=== PATIENT | female | born 1995 | race Caucasian/White ===

== ENCOUNTER 2025-05-30 12:25 | Emergency (ER) | payer MEDICAID, OTHER ==
[~2025-05-30] VITALS: Ht 162.6 cm; Wt 82.0 kg
[~2025-05-30 12:25] MED LIST: ONDA-243 PO
[2025-05-30 13:08] VITALS: BP 113/64; PULSE 80; RESP 18; O2SAT 97
--- NOTE | 2025-05-30 14:59 | Physician Documentation ---
History of Present Illness ~ Chief Complaint: Rash Stated Complaint: RASH/BUG BITES Time Seen by MD: 14:15 HPI Patient is a 30-year-old female that presents to the emergency department for evaluation of several patches of rash on her arm leg face and small area on her abdomen. She has recently moved to a new apartment with her aunt her aunt has 10+ cats they have fleas she is concerned that these might be flea bites. She reports a history of eczema denies any recent outings our exposure to poison oak and no other known sources as irritant at this time. Denies any difficulty breathing ocular involvement and no itching or lesions noted in her mouth or oral mucosa. Medication Reconciliation Allergies: Coded Allergies: No Known Allergies (Unverified , 05/30/25) Scheduled PRN ONDANSETRON ODT 4mg tablet (Ondansetron Odt), 1 TABLET PO Q6H PRN for nausea/vomiting Past Medical History Past Medical History: No Pertinent History Past Surgical History: no surgical history Alcohol Use: None Drug Use: none Lives with: Family Lives In: Home Review of Systems ROS As stated above in the HPI, otherwise all systems are reviewed and negative. Physical Exam Vital Signs: Temperature: 97.3, Source: Temporal, Heart Rate: 80, Respiratory Rate: 18, BP: 113/64, Pulse Oximetry: 97, Weight: 81.950 Physical Exam VITALS: Reviewed and as above. GENERAL: Alert, no apparent distress. HEENT: Normocephalic, atraumatic, PERRL, EOMI, dry mucosa, no erythema RESPIRATORY: Lungs clear, normal breath sounds, no respiratory distress. CHEST: No accessory muscle use, no retractions CV: Regular rate, rhythm, no edema, no murmur, No: JVD GI: Soft, non-tender, bowels sounds present, no rebound, guarding, or rigidity BACK: No CVA tenderness, or swelling MUSCULOSKELETAL No deformities, no edema SKIN: Warm and dry, multiple areas of erythematous mildly vesicular rash to elbow posterior left knee left cheek small area on abdomen NEURO: Oriented x4, No motor or sensory deficit PSYCH: Normal mood and affect, no agitation Progress Results/Orders Results/Orders Completed Orders - CLINTON HOLGUINP Methylprednisolone Sod Succ (Solumedrol (05/30/25 14:35) Medications Received in ER Medications (Trade) Dose Ordered Sig/Kale Route PRN Reason Start Time Stop Time Status Last Admin Dose Admin (SoluMEDROL 125mg inj) 125 mg ONCE ONCE IM 05/30/25 14:35 05/30/25 14:36 DC 05/30/25 14:40 125 MG Vital Signs 05/30/25 13:08 Temp 97.3 Pulse 80 Resp 18 B/P (MAP) 113/64 Pulse Ox 97 Medical Decision Making Findings This patient who presents with rash consistent with contact dermatitis or exacerbation of eczema. History and exam findings not consistent with dangerous etiologies of rash such as SJS/TEN, or secondary dangerous causes such as petechial rashes from thrombocytopenia or rickettsial infections. Rash does not appear urticarial with no signs of anaphylaxis either. Given Solu-Medrol here in the ER, written education and instructions to apply topical hydrocortisone affected areas x3 days. Benadryl as needed before bed. Plan at this time is to treat symptomatically, instruct to follow up with PCP or derm PRN. Differential Dx:Considerations: Include: Abscess, AIDS/HIV, Anthrax (cutaneou s), Atopic dermatitis, Candidiasis, Contact dermatitis, Drug reaction, Erythema multiforme, Erysipelas, Gangrene, Herpes zoster, Herpes simplex, Hidradenitis suppurativa, Impetigo, Intertrigo, Lymes disease, Molluscum contagiosum, Osteomyelitis, Pediculosis, Pityriasis rosea, Psoriaisis, RMSF, Rosacea, Scabies, Scarlet fever, Tinea, Urticaria, Varicella, Viral exanthema, Other Departure Disposition: HOME / SELF CARE / HOMELESS Impression: Primary Impression: Skin irritation Additional Impression: Allergic contact dermatitis Condition: Stable Discharge Instructions: Contact Dermatitis, Pruritus Additional Instructions: Today residing for a rash. He were given IV Solu-Medrol while here in the emergency department. Topical hydrocortisone to the areas as needed help reduce inflammation 25 mg prior to bed will help with the itching. With your primary care provider. Return to the emergency department if you have any worsening or recurrent symptoms he develop any rash or areas of redness around her eyes in her mouth any difficulty breathing or any other concerning symptoms. Referrals: NO PRIMARY CARE PROVIDER (PCP) Education Educated: Patient Educated regarding: treatment, need for follow up CLINTON HOLGUIN May 30, 2025 14:59
[2025-05-30 15:39] VITALS: TEMP 97.3
== END 2025-05-30 15:41 | disposition home or self-care (01) ==
LOC: ER 12:26
DX: L23.9 Allergic contact dermatitis, unspecified cause (principal)
CPT/HCPCS: 96372; 99283; J2919